=== PATIENT | female | born 1950 | race African-American/Black ===

== ENCOUNTER 2020-06-14 00:53 | Emergency (ER) | payer MEDICARE ==
[~2020-06-14] VITALS: Ht 175.3 cm; Wt 93.4 kg
[2020-06-14 00:55] VITALS: Ht 175.3 cm; Wt 93.4 kg
[2020-06-14 01:52] LABS: BASOPHIL % 3.2 % (0-2); PLATELET COUNT 114 x10^3mcL (130-400); RED CELL DISTRIBUTION WIDTH 14.6 % (11.5-14.5)
[2020-06-14 01:56] LABS: CALCIUM 9.2 mg/dL (8.5-10.1); CARBON DIOXIDE 28.7 mmol/L (21-32); CREATININE SERUM 1.4 mg/dL (0.6-1.0); POTASSIUM SERUM 3.6 mmol/L (3.5-5.1)
[2020-06-14 02:01] LABS: ALBUMIN 3.8 g/dL (3.4-5.0)
[2020-06-14 04:09] VITALS: BP 135/83
== END 2020-06-14 04:10 | disposition short-term general hospital (02) ==
LOC: ED 00:53
PROVIDERS: Emergency Medicine
DX: G45.9 Transient cerebral ischemic attack, unspecified (principal); I11.0 Hypertensive heart disease with heart failure; I50.9 Heart failure, unspecified; E11.9 Type 2 diabetes mellitus without complications; E78.00 Pure hypercholesterolemia, unspecified; Z85.3 Personal history of malignant neoplasm of breast; Z88.8 Allergy status to other drugs, medicaments and biological substances
CPT/HCPCS: 82962; Q0092